=== PATIENT | female | born 1995 | race Caucasian/White ===

== ENCOUNTER 2017-11-03 21:10 | Inpatient (IN) | payer MEDICAID ==
[2017-11-03] MEDS ORDERED: LACTATED RINGER'S 1,000 ML IV (22:40)
[2017-11-03] MEDS ORDERED: CARBOPROST 250 MCG INJ IM (23:00)
[2017-11-03] MEDS ORDERED: BUTORPHANOL 2 MG INJ IV (23:00)
[2017-11-03] MEDS ORDERED: OXYTOCIN 30 UNITS/LR 500 ML IV ×2 (23:00)
[2017-11-03] MEDS ORDERED: IBUPROFEN 600 MG TAB PO (23:00)
[2017-11-03] MEDS ORDERED: MISOPROSTOL 200 MCG TAB PR (23:00)
[2017-11-04] MEDS: LACTATED RINGER'S 1,000 ML IV* ×3 (00:19→17:40)
[2017-11-04] MEDS: CLINDAMYCIN 900 MG/D5W (PMX) 50 ML IV ×3 (00:25→16:21)
[2017-11-04 01:17] LABS: ADD MAN DIFF? NO
[2017-11-04 01:23] LABS: BASOPHILS % 0.3 % (0.0-2.0); EOSINOPHILS # 0.1 10^3/ul (0.0-0.5); EOSINOPHILS % 1.2 % (0.0-7.0); HEMATOCRIT 37.8 % (37.0-47.0); HEMOGLOBIN 12.8 g/dl (12.0-16.0); LYMPHOCYTES # 2.5 10^3/ul (0.8-2.9); LYMPHOCYTES % 24.1 % (15.0-51.0); MEAN CORPUSCULAR HEMOGLOBIN 31.3 pg (29.0-33.0); MEAN CORPUSCULAR HGB CONC 33.9 g/dl (32.0-37.0); MEAN CORPUSCULAR VOLUME 92.4 fl (82.0-101.0); MEAN PLATELET VOLUME 11.1 fl (7.4-10.4); MONOCYTE # 0.7 10^3/ul (0.3-0.9); MONOCYTES % 6.8 % (0.0-11.0); NEUTROPHIL # 6.7 10^3/ul (1.6-7.5); NEUTROPHILS % 66.3 % (39.0-77.0); PLATELET COUNT 124 10^3/UL (140-415); RED BLOOD COUNT 4.09 10^6/ul (4.20-5.40); RED CELL DISTRIBUTION WIDTH 14.5 % (11.5-14.5)
[2017-11-04 01:23] LABS: WHITE BLOOD COUNT 10.2 10^3/ul (4.8-10.8)
[2017-11-04 01:41] LABS: INR 0.97
[2017-11-04] MEDS: OXYTOCIN 30 UNITS/LR 500 ML IV ×3 (01:47→21:50)
[2017-11-04 03:13] LABS: HEPATITIS B SURFACE ANTIGEN NEGATIVE (NEGATIVE)
[2017-11-04] MEDS: METHYLERGONOVINE 0.2 MG INJ IM (19:53)
[2017-11-04] MEDS: LIDOCAINE 1% (MPF) 30 ML INJ INJ (19:54)
[2017-11-04 20:42] LABS: RAPID PLASMA REAGIN NONREACTIVE (NR)
[2017-11-04] MEDS ORDERED: DEXTROSE 5%-LR 1,000 ML IV (21:28)
[2017-11-04] MEDS ORDERED: ONDANSETRON 4 MG INJ IV (21:30)
[2017-11-04] MEDS ORDERED: ACETAMINOPHEN 325 MG TAB PO (21:30)
[2017-11-04] MEDS ORDERED: METHYLERGONOVINE 0.2 MG INJ IM (21:30)
[2017-11-04] MEDS ORDERED: MISOPROSTOL 200 MCG TAB PR (21:30)
[2017-11-04] MEDS ORDERED: DIBUCAINE 1% 30 GM OINT PR (21:30)
[2017-11-04] MEDS ORDERED: CARBOPROST 250 MCG INJ IM (21:30)
[2017-11-04] MEDS ORDERED: DIPHENHYDRAMINE 50 MG INJ IV (21:30)
[2017-11-04] MEDS ORDERED: SENNA/DOCUSATE NA (8.6MG/50MG) TAB PO (21:30)
[2017-11-04] MEDS ORDERED: ZOLPIDEM 5 MG TAB PO (21:30)
[2017-11-04] MEDS ORDERED: OXYTOCIN 30 UNITS/LR 500 ML IV (21:30)
[2017-11-04] MEDS ORDERED: OXYCODONE/ASPIRIN (4.88/325) TAB PO (21:30)
[2017-11-04] MEDS: IBUPROFEN 600 MG TAB PO (23:29)
[2017-11-04] MEDS: BENZOCAINE 20% 56 ML SPRAY TOP (23:29)
[2017-11-04] MEDS: WITCH HAZEL/GLYCERIN PAD PR (23:29)
[2017-11-04] MEDS: LANOLIN 7 GM TUBE TOP (23:29)
[2017-11-05] MEDS: LACTATED RINGER'S 1,000 ML IV* ×2 (03:54→05:28)
[2017-11-05] MEDS: IBUPROFEN 600 MG TAB PO ×4 (05:37→23:55)
[2017-11-05 10:01] LABS: ADD MAN DIFF? NO
[2017-11-05 10:03] LABS: WHITE BLOOD COUNT 12.1 10^3/ul (4.8-10.8)
[2017-11-05 10:03] LABS: BASOPHILS % 0.2 % (0.0-2.0); EOSINOPHILS # 0.1 10^3/ul (0.0-0.5); EOSINOPHILS % 0.7 % (0.0-7.0); HEMATOCRIT 38.5 % (37.0-47.0); LYMPHOCYTES # 1.7 10^3/ul (0.8-2.9); LYMPHOCYTES % 14.3 % (15.0-51.0); MEAN CORPUSCULAR HEMOGLOBIN 30.6 pg (29.0-33.0); MEAN CORPUSCULAR HGB CONC 33.8 g/dl (32.0-37.0); MEAN CORPUSCULAR VOLUME 90.6 fl (82.0-101.0); MEAN PLATELET VOLUME 11.4 fl (7.4-10.4); MONOCYTE # 0.8 10^3/ul (0.3-0.9); MONOCYTES % 6.6 % (0.0-11.0); NEUTROPHIL # 9.3 10^3/ul (1.6-7.5); NEUTROPHILS % 77.4 % (39.0-77.0); PLATELET COUNT 127 10^3/UL (140-415); RED BLOOD COUNT 4.25 10^6/ul (4.20-5.40); RED CELL DISTRIBUTION WIDTH 14.6 % (11.5-14.5)
[2017-11-06] MEDS: IBUPROFEN 600 MG TAB PO ×2 (05:27→12:15)
[2017-11-06] MEDS: MEASLES,MUMPS,RUBELLA VACCINE INJ SC* (09:36)
[2017-11-06] MEDS: DIPHTH/TET/ACEL PERTUSS (ADULT) 0.5 ML VIAL IM* (10:05)
== END 2017-11-06 16:05 | disposition home or self-care (01) | DRG 775 ==
LOC: OBT 21:10 → PP1 11-04 21:57 → L-D 21:10 → OBT 22:40 → L-D 22:02
PROVIDERS: Obstetrics & Gynecology
PROC: 10E0XZZ Delivery of Products of Conception, External Approach (ICD-10-PCS; principal; 2017-11-04)
PROC: 0KQM0ZZ Repair Perineum Muscle, Open Approach (ICD-10-PCS; 2017-11-04)
DX: O69.81X0 Labor and delivery complicated by cord around neck, without compression, not applicable or unspecified (principal); O70.1 Second degree perineal laceration during delivery; Z3A.38 38 weeks gestation of pregnancy; Z37.0 Single live birth
CPT/HCPCS: 76815; 85025; 85610; 85730; 86592; 86850; 86900; 86901; 87340; 90715

== ENCOUNTER 2017-11-15 15:31 | Emergency (ER) | payer MEDICAID ==
[2017-11-15 16:48] LABS: URINE BLOOD (Dip) POC 3+ (NEGATIVE); URINE GLUCOSE (Dip) POC Negative (NEGATIVE); URINE KETONES (Dip) POC Negative (NEGATIVE); URINE LEUKOCYTE EST (Dip) POC 2+ (NEGATIVE); URINE NITRITE (Dip) POC Negative (NEGATIVE); URINE TOTAL PROTEIN POC Trace (NEGATIVE)
[2017-11-15] MEDS: SODIUM CHLORIDE 0.9% 1L BAG IV* (16:57)
[2017-11-15] MEDS: LEVOFLOXACIN 500MG/D5W (PMX) 100 ML IVPB (17:17)
[2017-11-15 17:21] LABS: ADD MAN DIFF? NO
[2017-11-15 17:24] LABS: WHITE BLOOD COUNT 11.5 10^3/ul (4.8-10.8)
[2017-11-15 17:24] LABS: BASOPHILS % 0.3 % (0.0-2.0); EOSINOPHILS # 0.1 10^3/ul (0.0-0.5); HEMATOCRIT 47.3 % (37.0-47.0); HEMOGLOBIN 16.2 g/dl (12.0-16.0); LYMPHOCYTES % 8.5 % (15.0-51.0); MEAN CORPUSCULAR HEMOGLOBIN 30.9 pg (29.0-33.0); MEAN CORPUSCULAR HGB CONC 34.2 g/dl (32.0-37.0); MEAN CORPUSCULAR VOLUME 90.3 fl (82.0-101.0); MEAN PLATELET VOLUME 10.5 fl (7.4-10.4); MONOCYTE # 0.5 10^3/ul (0.3-0.9); MONOCYTES % 4.5 % (0.0-11.0); NEUTROPHIL # 9.8 10^3/ul (1.6-7.5); NEUTROPHILS % 85.1 % (39.0-77.0); PLATELET COUNT 182 10^3/UL (140-415); RED BLOOD COUNT 5.24 10^6/ul (4.20-5.40); RED CELL DISTRIBUTION WIDTH 12.9 % (11.5-14.5)
[2017-11-15 17:43] LABS: INR 1.01; PROTIME 13.4 Sec (11.9-14.9)
[2017-11-15 17:43] LABS: LACTIC ACID 1.4 mmol/L (0.5-2.0)
[2017-11-15] MEDS: ACETAMINOPHEN 500 MG TAB PO (17:43)
[2017-11-15 17:44] LABS: PARTIAL THROMBOPLASTIN TIME 35.3 Sec (25.0-35.0)
[2017-11-15 17:45] LABS: ADD UMIC YES; ALANINE AMINOTRANSFERASE 13 IU/L (13-69); ALBUMIN 4.2 g/dl (3.3-4.9); ALBUMIN/GLOBULIN RATIO 1.35; ALKALINE PHOSPHATASE 94 IU/L (42-121); ANION GAP 16 (8-16); ASPARTATE AMINO TRANSFERASE 17 IU/L (15-46); BILIRUBIN,INDIRECT 0.4 mg/dl (0-1.1); BILIRUBIN,TOTAL 0.4 mg/dl (0.2-1.3); BLOOD UREA NITROGEN 13 mg/dl (7-20); CALCIUM 9.5 mg/dl (8.4-10.2); CARBON DIOXIDE 22 mmol/L (21-31); CHLORIDE 103 mmol/L (97-110); CREATININE 0.74 mg/dl (0.44-1.00); GLUCOSE 89 mg/dl (70-220); POTASSIUM 4.3 mmol/L (3.5-5.1); SODIUM 137 mmol/L (135-144); TOTAL PROTEIN 7.3 g/dl (6.1-8.1); UR ASCORBIC ACID NEGATIVE (NEGATIVE); UR BILIRUBIN (Dip) NEGATIVE (NEGATIVE); UR BLOOD (Dip) 3+ mg/dL (NEGATIVE); UR CLARITY SLIGHTLY CLOUDY (CLEAR); UR COLOR YELLOW (YELLOW); UR GLUCOSE (Dip) NEGATIVE (NEGATIVE); UR KETONES (Dip) NEGATIVE (NEGATIVE); UR LEUKOCYTE ESTERASE (Dip) 3+ Leu/ul (NEGATIVE); UR NITRITE (Dip) NEGATIVE (NEGATIVE); UR RBC 81 /HPF (0-5); UR TOTAL PROTEIN (Dip) NEGATIVE (NEGATIVE); UR UROBILINOGEN (Dip) NEGATIVE (NEGATIVE); UR WBC 117 /HPF (0-5)
[2017-11-15 17:55] LABS: TROPONIN-I < 0.010 ng/ml (0.000-0.120)
== END 2017-11-15 20:38 | disposition home or self-care (01) ==
LOC: FTE 15:31
DX: N12 Tubulo-interstitial nephritis, not specified as acute or chronic (principal); R10.31 Right lower quadrant pain
CPT/HCPCS: 36415; 71045; 74176; 80053; 81001; 81003; 81025; 83605; 84484; 85025; 85610; 85730; 87040; 87086; 96365; 99285-25

== ENCOUNTER 2017-12-01 20:31 | Emergency (ER) | payer MEDICAID ==
[2017-12-01] MEDS: ACETAMINOPHEN 325 MG TAB PO (22:07)
[2017-12-01] MEDS: KETOROLAC 60 MG INJ IM (22:13)
== END 2017-12-01 23:51 | disposition home or self-care (01) ==
LOC: FTE 20:31
DX: N61.0 Mastitis without abscess (principal)
CPT/HCPCS: 81025; 96372; 99284-25